=== PATIENT | female | born 1945 | race Caucasian/White ===

== ENCOUNTER 2018-07-10 10:30 | Emergency (ER) | payer MEDICARE ==
[2018-07-10 10:41] VITALS: BP 154/92
--- NOTE | 2018-07-10 10:51 | ER Report ---
History and Physical Time Seen By MD: 10:47 Hx. of Stated Complaint: Pt. having UTI symptoms since 5am this morning, felt fine yesterday. Symptoms include urgency and pressure. No burning. Pressure in the LLQ. Vomited twice this morning. No history of kidney stones. HPI/ROS CHIEF COMPLAINT: Urinary complaints HISTORY OF PRESENT ILLNESS: 73-year-old female history of hypertension comes emergency Department today with complaint of increased frequency hesitancy since hesitancy and dysuria that started last evening woke up about 4:30 5:00 in the morning any urinary stream which is somewhat tender denies any foul smell Pieter suprapubic tenderness was seen at primary care started on antibiotics let the primary care and came here She wanted a 2nd opinion. Patient has no chest pain or shortness of breath she had one episode of emesis late last evening she has no diarrhea and the pain is localized again with urination to the suprapubic area otherwise no complaints REVIEW OF SYSTEMS: Respiratory: No cough, no dyspnea. Cardiovascular: No chest pain, no palpitations. Gastrointestinal: One episode of emesis. Abdominal tenderness Musculoskeletal: No back pain. Remainder of the 14 system rev: Yes Allergies: Coded Allergies: No Known Drug Allergies (Unverified , 07/10/18) Home Meds Reported Medications Bimatoprost (LUMIGAN) 2.5 Ml Drops 07/10/18 Brimonidine/Timolol (COMBIGAN EYE DROPS) 1 Drop Drop 07/10/18 Reviewed Nurses Notes: Yes Old Medical Records Reviewed: Yes Constitutional Vital Sign - Last 24 Hours 07/10/18 10:41 Temp 98.1 Pulse 74 Resp 16 B/P (MAP) 154/92 Pulse Ox 94 O2 Delivery Room Air Physical Exam General Appearance: The patient is alert, has no immediate need for airway protection and no current signs of toxicity. [ ] Eyes: Pupils equal and round no injection. Respiratory: Chest is non tender, lungs are clear to auscultation. Cardiac: regular rate and rhythm [ ] Gastrointestinal: Mild tenderness to deep palpation suprapubic region left lower quadrant otherwise unremarkable exam Musculoskeletal: Neck: Neck is supple and non tender. Extremities have full range of motion and are non tender. Skin: No rashes or lesions. [ ] DIFFERENTIAL DIAGNOSIS: After history and physical exam differential diagnosis was considered for UTI pyelonephritis kidney stone Medical Decision Making Data Points Laboratory Hematology Test 07/10/18 10:39 Urine Color Kellen Urine Clarity Clear Urine pH 8.0 pH (4.8-9.5) Urine Specific [place] 1.014 Urine Protein Negative mg/dL (NEGATIVE) Urine Glucose (UA) Negative mg/dL (NEGATIVE) Urine Ketones Negative mg/dL (NEGATIVE) Urine Blood Small (NEGATIVE) Urine Nitrite Positive (NEGATIVE) Urine Bilirubin Negative (NEGATIVE) Urine Urobilinogen 4.0 mg/dL (0.2-1.9) Urine Leukocyte Esterase Negative (NEGATIVE) Urine RBC 33 /HPF (0-2/HPF) Urine WBC 1 /HPF (0-5/HPF) Urine Squamous Epithelial Cells Few /LPF (</=FEW) Urine Bacteria Negative /HPF (NONE-FEW) Urine Mucus None /HPF (NONE-FEW) Chemistry Test 07/10/18 10:39 Urine Color Kellen Urine Clarity Clear Urine pH 8.0 pH (4.8-9.5) Urine Specific [place] 1.014 Urine Protein Negative mg/dL (NEGATIVE) Urine Glucose (UA) Negative mg/dL (NEGATIVE) Urine Ketones Negative mg/dL (NEGATIVE) Urine Blood Small (NEGATIVE) Urine Nitrite Positive (NEGATIVE) Urine Bilirubin Negative (NEGATIVE) Urine Urobilinogen 4.0 mg/dL (0.2-1.9) Urine Leukocyte Esterase Negative (NEGATIVE) Urine RBC 33 /HPF (0-2/HPF) Urine WBC 1 /HPF (0-5/HPF) Urine Squamous Epithelial Cells Few /LPF (</=FEW) Urine Bacteria Negative /HPF (NONE-FEW) Urine Mucus None /HPF (NONE-FEW) Urinalysis Test 07/10/18 10:39 Urine Color Kellen Urine Clarity Clear Urine pH 8.0 pH (4.8-9.5) Urine Specific [place] 1.014 Urine Protein Negative mg/dL (NEGATIVE) Urine Glucose (UA) Negative mg/dL (NEGATIVE) Urine Ketones Negative mg/dL (NEGATIVE) Urine Blood Small (NEGATIVE) Urine Nitrite Positive (NEGATIVE) Urine Bilirubin Negative (NEGATIVE) Urine Urobilinogen 4.0 mg/dL (0.2-1.9) Urine Leukocyte Esterase Negative (NEGATIVE) Urine RBC 33 /HPF (0-2/HPF) Urine WBC 1 /HPF (0-5/HPF) Urine Squamous Epithelial Cells Few /LPF (</=FEW) Urine Bacteria Negative /HPF (NONE-FEW) Urine Mucus None /HPF (NONE-FEW) ED Course/Re-evaluation ED Course ED course 73-year-old female comes here with UTI type symptoms she has a urinalysis clearly demonstrating a urinary tract infection she has been placed on Bactrim she is nitrate positive not leukoesterase L switch her to a fluoroquinolone for better coverage sent off for culture and her follow up with primary care Decision to Disposition Date: Jul 10, 2018 Decision to Disposition Time: 11:06 Depart Departure Latest Vital Signs Vital Signs Date Time Temp Pulse Resp B/P (MAP) Pulse Ox O2 Delivery O2 Flow Rate FiO2 07/10/18 10:41 98.1 74 16 154/92 94 Room Air Impression: Primary Impression: Urinary tract infection Condition: Improved Disposition: HOME OR SELF-CARE Referrals: [facility] 5 Days New Scripts Ciprofloxacin Hcl 500 Mg Tab (CIPRO 500 MG TAB) 500 Mg Tablet 500 MG PO BID for 1 Day, #20 0 Refills Prov: RUFUS HARRISON MD 07/10/18 Patient Instructions: Urinary Tract Infection in Women (DC) RUFUS HARRISON MD Jul 10, 2018 10:51
[2018-07-10] MEDS ORDERED: BIMA2.5D5 (10:52)
[2018-07-10] MEDS ORDERED: COMODPT (10:52)
[2018-07-10] MEDS ORDERED: CIPR-344 PO (11:07)
== END 2018-07-10 11:23 | disposition home or self-care (01) ==
LOC: ER 10:35
DX: N39.0 Urinary tract infection, site not specified (principal)
CPT/HCPCS: 81001; 99282

== ENCOUNTER → 2018-08-13 | Outpatient (CLI) | payer MEDICARE ==
[~2018-08-13] MED LIST: BIMA2.5D5; CIPR-214 PO; CIPR-344 PO; COMODPT
== END ==
LOC: LAB 13:05
PROVIDERS: ATTEND Urology
DX: R31.9 Hematuria, unspecified (principal)
CPT/HCPCS: 81001

== ENCOUNTER → 2018-08-19 | Outpatient (CLI) | payer MEDICARE ==
[~2018-08-19] MED LIST changes: +IOPAMIDOL 76% 100 ML INFUS BTL 100 ML ONE
--- NOTE | 2018-08-19 10:48 | RADIOLOGY IMAGING REPORT ---
FACILITY: [facility] [place] PATIENT NAME: Janice Fabian : 1945 MR: [id number] V: [id number] EXAM DATE: ORDERING PHYSICIAN: JOHN JACK TECHNOLOGIST: Location: [facility] [place] Patient: Fabian May : 1945 Visit/Account:[id number] Date of Sevice: 08/19/2018 CT ABDOMEN PELVIS W & W/O CONTRAST HISTORY:hematuria TECHNIQUE: CT abdomen and pelvis with intravenous contrast. Contiguous axial images of the abdomen and pelvis was performed from the lung bases to the symphysis pubis. One of the following dose optimization techniques was utilized in the performance of this exam: Autom ated exposure control; adjustment of the mA and/or kV according to the patient's size; or use of an i terative reconstruction technique. Specific details can be referenced in the facility's radiology C T exam operational policy. CONTRAST: 75 cc of [id number] COMPARISON: None. FINDINGS: Visualized lung bases: Tiny 2 mm left for lobe micronodules noted image 12. Hepatobiliary: Tiny 2 mm hypodensity segment 2 of liver image 171 is likely a small cyst but too sma ll to characterize. Subtle enhancement of the gallbladder wall could represent some prominent vessel s. Spleen: Several small hypodensities are noted in the spleen which are indeterminant but statisticall y benign in the absence of history malignancy. Adrenals: Negative. Kidneys/: 7 mm nonobstructing stone is noted midpole left kidney. No visualized stones in the rig ht kidney. No obstructing ureteral stones. Some benign parapelvic cysts are noted on the left. James cification medially near the midpole left kidney is likely vascular. Bladder is decompressed but unremarkable. There are bilateral cystic ovarian masses on the left measuring 4.8 x 3 x 4.1 cm. The right cystic o varian mass measures 5.5 x 4.1 x 4.3 cm. Further evaluation suggested. Pancreas: Negative. GI: There is a small hiatal hernia. Patient is constipated. Vessels/spaces/nodes: Atherosclerotic calcifications noted. No evidence for ascites or peritoneal n odularity. Bones/soft tissues: Patient has a mild scoliosis. There is 5 mm of retrolisthesis of L1 respect L2. There is 4 mm of retrolisthesis of L5 with respect L5 IMPRESSION: 1. 7 mm nonobstructing stone is noted midpole left kidney. No obstructing renal or ureteral stones. 2. Bilateral cystic ovarian masses measuring 4.8 x 3 x 4.1 cm on the left and 5.5 x 4.1 x 4.3 cm on the right. Recommend a pelvic ultrasound to evaluate for malignancy. Report Dictated By: Candelario Wade MD at 08/19/2018 10:28 AM Report E-Signed By: Candelario Wade MD at 08/19/2018 10:42 AM WSN:[email or web address]
== END ==
LOC: CT 00:59
PROVIDERS: ATTEND Urology
DX: N20.0 Calculus of kidney (principal); N83.201 Unspecified ovarian cyst, right side; N83.202 Unspecified ovarian cyst, left side
CPT/HCPCS: 74178; Q9967

== ENCOUNTER 2018-09-02 03:07 | Day surgery (SDC) | payer MEDICARE ==
[~2018-09-02] VITALS: Ht 157.5 cm; Wt 67.6 kg
[~2018-09-02 03:07] MED LIST changes: +DORZ10DR24 OP; -IOPAMIDOL 76% 100 ML INFUS BTL 100 ML ONE
[2018-09-02 10:17] VITALS: BP 127/72
[2018-09-02] MEDS ORDERED: NORMOSOL R SOLN(*) 1000 ML BAG 1,000 ML IV PRN (10:40)
[2018-09-02] MEDS ORDERED: FAMOTIDINE 20 MG TAB PO ONE (10:40)
[2018-09-02] MEDS ORDERED: MIDAZOLAM 2 MG/2 ML VIAL IVP PRN (10:40)
[2018-09-02] MEDS ORDERED: LEVOFLOXACIN/D5W*500 MG/100 ML 100 ML IVPB ONE (10:40)
[2018-09-02] MEDS ORDERED: LIDOCAINE/SOD BICARB 8.4% SYR ID ONE (10:40)
[2018-09-02] MEDS ORDERED: ONDANSETRON 4 MG/2 ML VIAL ONE (11:02)
[2018-09-02] MEDS ORDERED: LIDOCAINE MPF 1% 5 ML VIAL ONE (11:02)
[2018-09-02] MEDS ORDERED: DEXAMETHASONE SOD 4 MG/ML VIAL ONE (11:02)
[2018-09-02] MEDS ORDERED: PROPOFOL EMUL(*) 10MG/ML 20 ML 20 ML ONE (11:02)
[2018-09-02] MEDS ORDERED: fentaNYL CITR 100 MCG/2 ML AMP ONE (11:04)
[2018-09-02] MEDS ORDERED: ePHEDrine 25 MG/5 ML DISP.SYR IVP ONE (12:37)
[2018-09-02 14:23] VITALS: BP 127/66
--- NOTE | 2018-09-02 14:26 | OPERATIVE REPORT 1 ---
EVENT DATE: September 02, 2018 SURGEON: Yg Nixon MD ANESTHESIOLOGIST: Tate Beard MD ANESTHESIA: General. IRON CARRIER: None. PREOPERATIVE DIAGNOSIS Left renal calculus. POSTOPERATIVE DIAGNOSIS Left renal calculus. PROCEDURE PERFORMED Left extracorporeal shock wave lithotripsy. DESCRIPTION OF PROCEDURE After the adequate induction of general anesthesia, the patient was positioned on the treatment table and the stone identified fluoroscopically. It was treated with a total of 3,000 shocks and a maximum setting of 5. The stone demonstrated good fragmentation during and after the procedure. She was then aroused from anesthesia and transported to the PACU in stable condition. YAKELIN
[2018-09-02 14:33] VITALS: BP 122/71
[2018-09-02 14:35] VITALS: BP 106/77
== END 2018-09-02 14:23 | disposition home or self-care (01) ==
LOC: OR 03:07
PROVIDERS: ATTEND Urology
DX: N20.0 Calculus of kidney (principal)
CPT/HCPCS: 50590; A9270; J1100; J1956; J2001; J2250; J2405; J2704; J3010